=== PATIENT | male | born 1975 | race Hispanic/Latino ===

== ENCOUNTER 2024-09-28 03:37 | Emergency (ER) | payer OTHER, SELFPAY ==
--- NOTE | ~2024-09-28 | XR_ITS ---
XR chest 1V portable Ordering provider: Charlie Richardson History: 48 years Male with . chest pain/ sob . Comparison: None. FINDINGS: MEDIASTINUM: The cardiac silhouette is not enlarged. LUNGS: No infiltrates, effusions or pneumothorax. Prominent bronchovascular markings seen bilaterally. OTHER: No free air under the diaphragm. IMPRESSION: No acute cardiopulmonary pathology. Reviewed, dictated and finalized at location A.
--- NOTE | 2024-09-28 03:42 | ECG_ITS ---
Test Date: 2024-09-28 03:44:49 Measurements Intervals [place] Rate: 98 P: 41 CO: 174 QRS: 43 QRSD: 99 T: 6 QT: 326 QTc: 418 Interpretive Statements SINUS RHYTHM NONSPECIFIC ST-T WAVE ABNORMALITY- INFERIOR LEADS BASELINE ARTIFACT- I, II, III, AVR, AVL, AVF, V1-V6 BORDERLINE ECG No previous ECG available for comparison Electronically Signed On 09-28-2024 07:43:27 CDT by Dakotah Sung D.O.
[2024-09-28 03:43] VITALS: BP 131/71; PULSE 96; PULSE 98; RESP 16; TEMP 36.7; O2SAT 100; O2SAT 98
[2024-09-28 04:10] LABS: Basophils Absolute Auto 0.1 K/mm3 (0.0-0.1); Basophils Percent Auto 0.9 % (0.2-1.2); Eosinophils Absolute Auto 0.3 K/mm3 (0-0.3); Eosinophils Percent Auto 4.3 % (0-4.4); Hematocrit 45.6 % (42.0-52.0); Hemoglobin 15.6 g/dL (14.0-18.0); Immature Granulocyte Absolute 0.04 K/mm3 (0.00-0.031); Immature Granulocyte Percent A 0.6 % (0-0.5); Lymphocytes Absolute Auto 2.23 K/mm3 (0.9-3.2); Mean Corpuscular HGB Conc 34.2 g/dl (32-36); Mean Corpuscular Hemoglobin 30.1 pg (26-34); Monocytes Percent Auto 14.9 % (2.6-8.5); Neutrophils Absolute Auto 3.1 K/mm3 (1.3-6.7); Neutrophils Percent Auto 46.3 % (45.5-73.1); Platelet Count Result 246 k/mm3 (150-375); Red Blood Count 5.18 M/mm3 (4.6-6.20); White Blood Count 6.8 K/mm3 (4.5-10.0)
[2024-09-28 04:23] LABS: Potassium 3.5 mmol/L (3.4-5.0)
[2024-09-28 04:25] LABS: Alanine Aminotransferase 39 U/L (6-50); Albumin Level 4.4 g/dL (3.5-5.1); Alkaline Phosphatase 99 U/L (38-126); Anion Gap 11 mmol/L (4-12); Aspartate Amino Transferase 29 U/L (17-59); Bilirubin,Total 0.7 mg/dL (0.2-1.3); Blood Urea Nitrogen 17 mg/dL (9-20); Calcium 8.7 mg/dL (8.4-10.2); Carbon Dioxide 23 mmol/L (22-30); Chloride 108 mmol/L (98-107); Estimated CRCL calculation 90 ml/min; Estimated Glomerular Filt Rate > 60; Glucose 98 mg/dL (65-110); Lipase 138 U/L (23-300); Sodium 142 mmol/L (137-145)
--- NOTE | 2024-09-28 04:25 | ED_ITS ---
HPI - General Adult General Chief complaint: Chest Pain Stated complaint: cp and sob Time Seen by Provider: 09/28/24 04:18 History of Present Illness HPI narrative: Patient great year old gentleman presents emergency department with chief complaint of chest discomfort. Patient reports that he was sleeping and woke up feeling short of breath and having some discomfort in his chest patient has had several of these episodes over the last few months the reports that the patient snores a lot at night and does have episodes where he stops breathing whenever he is snoring Related Data Allergies Allergy/AdvReac Type Severity Reaction Status Date / Time No Known Allergies Allergy Verified 09/28/24 03:47 Review of Systems 2 Review of Systems: A 10 system review of systems was completed on the patient and is negative except for what is stated in the HPI. Nursing and ancillary documentation was reviewed. Exam 2 Narrative: GENERAL: Well-appearing, well-nourished, and in no acute distress. HEAD: Normocephalic, atraumatic. EYES: PERRLA and EOMI. ENT: Nares clear, no rhinorrhea or epistaxis. Mucous membranes moist. NECK: Supple. CHEST: Clear to auscultation. No respiratory distress. HEART: Regular rate and rhythm. No murmur heard. Normal peripheral pulses. ABDOMEN: Soft, nontender, nondistended, normal active bowel sounds. EXTREMITIES: Normal range of motion. No edema. SKIN: Warm, dry, no rash. NEURO: No focal deficits. Alert and oriented x3. PSYCH: Normal mood and affect. Course Vital Signs Vital signs: Vital Signs Temperature 36.7 C 09/28/24 03:43 Pulse Rate 98 09/28/24 03:43 Respiratory Rate 16 09/28/24 03:43 Blood Pressure 131/71 09/28/24 03:43 Pulse Oximetry 100 09/28/24 03:43 Oxygen Delivery Room Air 09/28/24 03:43 Temperature 36.7 C 09/28/24 03:43 Pulse Rate 71 09/28/24 06:18 Respiratory Rate 17 09/28/24 06:18 Blood Pressure 106/71 09/28/24 06:18 Pulse Oximetry 93 09/28/24 06:18 Oxygen Delivery Room Air 09/28/24 03:43 Medical Decision Making Vital Signs Vital Signs: Vital Signs Temperature 36.7 C 09/28/24 03:43 Pulse Rate 98 09/28/24 03:43 Respiratory Rate 16 09/28/24 03:43 Blood Pressure 131/71 09/28/24 03:43 Pulse Oximetry 100 09/28/24 03:43 Oxygen Delivery Room Air 09/28/24 03:43 Temperature 36.7 C 09/28/24 03:43 Pulse Rate 71 09/28/24 06:18 Respiratory Rate 17 09/28/24 06:18 Blood Pressure 106/71 09/28/24 06:18 Pulse Oximetry 93 09/28/24 06:18 Oxygen Delivery Room Air 09/28/24 03:43 Lab Data 09/28/24 03:49 09/28/24 03:49 Labs: Lab Results 09/28/24 09/28/24 Range/Units 03:49 06:36 WBC 6.8 (4.5-10.0) K/mm3 RBC 5.18 (4.6-6.20) M/mm3 Hgb 15.6 (14.0-18.0) g/dL Hct 45.6 (42.0-52.0) % MCV 88.0 (80-100) fl MCH 30.1 (26-34) pg MCHC 34.2 (32-36) g/dl RDW 14.0 (11.5-14.5) % Plt Count 246 (150-375) k/mm3 MPV 11.0 H (7.4-10.4) fl Immature Gran % (Auto) 0.6 H (0-0.5) % Neut % (Auto) 46.3 (45.5-73.1) % Lymph % (Auto) 33.0 (18.3-44.2) % Major % (Auto) 14.9 H (2.6-8.5) % Eos % (Auto) 4.3 (0-4.4) % Baso % (Auto) 0.9 (0.2-1.2) % Lymph # (Auto) 2.23 (0.9-3.2) K/mm3 Major # (Auto) 1.0 H (0.1-0.6) K/mm3 Eos # (Auto) 0.3 (0-0.3) K/mm3 Baso # (Auto) 0.1 (0.0-0.1) K/mm3 Abs Immat Gran (auto) 0.04 H (0.00-0.031) K/mm3 Absolute Neuts (auto) 3.1 (1.3-6.7) K/mm3 Absolute Nucleated RBC 0.000 (0.0-0.012) K/mm3 Nucleated RBC % 0.0 (0.0-0.2) % PT 13.3 (11.1-14.7) Seconds INR 1.0 APTT 26.8 (22.3-36.8) Seconds Sodium 142 (137-145) mmol/L Potassium 3.5 (3.4-5.0) mmol/L Chloride 108 H (98-107) mmol/L Carbon Dioxide 23 (22-30) mmol/L Anion Gap 11 (4-12) mmol/L BUN 17 (9-20) mg/dL Creatinine 0.97 (0.7-1.3) mg/dL Estim Creat Clear Calc 90 ml/min Estimated GFR > 60 (59 - ) Glucose 98 (65-110) mg/dL Calcium 8.7 (8.4-10.2) mg/dL Total Bilirubin 0.7 (0.2-1.3) mg/dL AST 29 (17-59) U/L ALT 39 (6-50) U/L Alkaline Phosphatase 99 (38-126) U/L Troponin I 0.016 0.014 (0.000-0.034) ng/mL NT-Pro-B Natriuret Pep < 20 (19.9-100) pg/mL Total Protein 7.0 (6.3-8.2) g/dL Albumin 4.4 (3.5-5.1) g/dL Lipase 138 (23-300) U/L Discharge Plan Discharge Clinical Impression: Atypical chest pain Patient Disposition: Home Condition: Stable Instructions: Antibiotic Form, Chest Pain (ED) Additional Instructions: Please follow-up with primary care you will need additional testing as an outpatient acute include stress testing and also could include a sleep study to evaluate for possible sleep apnea. Patient Language: Maltese Follow-up/Referrals: Hong Jacobsen MD [Physician] - UNKNOWN,DOCTOR [Non-Staff] - Time of Disposition: 07:07
[2024-09-28 04:26] LABS: Partial Thromboplastin Time 26.8 Seconds (22.3-36.8); Prothrombin Time 13.3 Seconds (11.1-14.7)
[2024-09-28 04:35] LABS: Troponin I 0.016 ng/mL (0.000-0.034)
[2024-09-28 04:45] LABS: NT Pro B Type Natriuretic Pept < 20 pg/mL (19.9-100)
[2024-09-28] MEDS: ASPIRIN 81 MG CHEWABLE TABLET 324 MG PO (05:06)
[2024-09-28 06:18] VITALS: BP 106/71; PULSE 71; RESP 17; O2SAT 93
--- NOTE | 2024-09-28 06:19 | ECG_ITS ---
Test Date: 2024-09-28 06:42:59 Measurements Intervals [place] Rate: 66 P: 44 [place]: 163 QRS: 28 QRSD: 80 T: 15 QT: 361 QTc: 380 Interpretive Statements SINUS RHYTHM MINIMAL Q WAVES- INFERIOR LEADS BASELINE ARTIFACT- I, II, AVR BORDERLINE ECG Compared to ECG 09/28/2024 03:44:49 No significant changes Electronically Signed On 09-28-2024 07:46:59 CDT by Dakotah Sung D.O.
[2024-09-28 07:01] VITALS: BP 108/75; PULSE 69; RESP 18; TEMP 36.6; O2SAT 94
[2024-09-28 07:05] LABS: Troponin I 0.014 ng/mL (0.000-0.034)
== END 2024-09-28 07:26 | disposition home or self-care (01) ==
PROVIDERS: Emergency Provider Emergency Medicine
DX: R07.89 Other chest pain (principal); R94.31 Abnormal electrocardiogram [ECG] [EKG]
CPT/HCPCS: 36415; 71045; 80053; 83690; 83880; 84484; 85025; 85610; 85730; 93005; 99284; A9270